=== PATIENT | male | born 1955 | race Caucasian/White ===

== ENCOUNTER 2017-10-23 05:14 | Emergency (ER) | payer BC ==
[2017-10-23 05:21] VITALS: RESP 20
[2017-10-23] MEDS ORDERED: SODIUM CHLORIDE 0.9% 500 ML IV STA (05:28)
[2017-10-23] MEDS ORDERED: SODIUM CHLORIDE 0.9% 1,000 ML IV STA ×2 (05:28→07:30)
[2017-10-23] MEDS ORDERED: ACETAMINOPHEN TAB 500 MG TAB PO STA (05:28)
[2017-10-23] MEDS ORDERED: IBUPROFEN 600 MG TAB PO STA (05:28)
[2017-10-23] MEDS ORDERED: RX INFO: IV CONTRAST WAS GIVEN 1 EACH MISC MISCELLANE PRN (05:32)
[2017-10-23 05:56] LABS: Basophils # (A) 0.1 k/uL (0-0.2); Basophils % (A) 1 %; Eosinophils % (A) 0 %; HCT 41.2 % (39.0-53.0); HGB 13.2 gm/dL (13.0-17.5); Lymphocytes # (A) 0.8 k/uL (1.0-4.8); Lymphocytes % (A) 10 %; MCH 29.4 pg (25.0-35.0); MCHC 32.1 g/dL (31.0-37.0); MCV 91.5 fL (80.0-100.0); Mean Platelet Volume 8.1; Monocytes # (A) 0.4 k/uL (0-1.0); Monocytes % (A) 5 %; Neutrophils # (A) 6.5 k/uL (1.3-7.7); Neutrophils % (A) 81 %; Platelet Count 202 k/uL (150-450); RDW 14.6 % (11.5-15.5); WBC 7.9 k/uL (3.8-10.6)
[2017-10-23 06:07] LABS: Partial Thromboplastin Time 27.6 sec (22.0-30.0); Prothrombin Time 10.1 sec (9.0-12.0)
[2017-10-23 06:08] LABS: ALT 42 U/L (21-72); AST 24 U/L (17-59); Albumin 3.8 g/dL (3.5-5.0); Alkaline Phosphatase 80 U/L (38-126); Anion Gap 14 mmol/L; Blood Urea Nitrogen 15 mg/dL (9-20); Calcium 8.2 mg/dL (8.4-10.2); Carbon Dioxide 23 mmol/L (22-30); Chloride 96 mmol/L (98-107); Glucose 115 mg/dL (74-99); Magnesium 1.6 mg/dL (1.6-2.3); Phosphorus 3.3 mg/dL (2.5-4.5); Potassium 3.6 mmol/L (3.5-5.1); Sodium 133 mmol/L (137-145); Total Bilirubin 0.6 mg/dL (0.2-1.3); Total Protein 6.6 g/dL (6.3-8.2)
--- NOTE | 2017-10-23 06:09 | ED ---
General Adult HPI - General Chief complaint: Headache Stated complaint: headache; chest pain; stomach pain Time Seen by Provider: 10/23/17 05:23 Source: patient, RN notes reviewed, old records reviewed Mode of arrival: ambulatory Limitations: no limitations - History of Present Illness Initial comments: This is a 62-year-old male to the ER for evaluation of multiple complaints. Patient complains of headache fever abdominal pain. Patient has no significant medical history. Patient states that he has been unable to urinate have bowel movement for. Patient states he hasn't eaten week. Drinking minimal multiple or minimal amount of urinary output. Patient states he hasn't felt well, with generalized abdominal pain and distention. Patient denies any travel history no sick contacts or family members with similar symptoms. Patient denies drugs or alcohol use - Related Data Home Medications Medication Instructions Recorded Confirmed Atorvastatin [Lipitor] 20 mg PO HS 10/23/17 10/23/17 Escitalopram [Lexapro] 20 mg PO DAILY 10/23/17 10/23/17 Verapamil HCl [Verelan Pm] 300 mg PO DAILY 10/23/17 10/23/17 buPROPion HCL [Wellbutrin XL] 300 mg PO DAILY 10/23/17 10/23/17 Allergies Allergy/AdvReac Type Severity Reaction Status Date / Time No Known Allergies Allergy Verified 10/23/17 07:37 Review of Systems ROS Statement: Those systems with pertinent positive or pertinent negative responses have been documented in the HPI. ROS Other: All systems not noted in ROS Statement are negative. Past Medical History Past Medical History: Hypertension History of Any Multi-Drug Resistant Organisms: None Reported Past Surgical History: No Surgical Hx Reported Past Psychological History: No Psychological Hx Reported Smoking Status: Former smoker Past Alcohol Use History: None Reported Past Drug Use History: None Reported General Exam Limitations: no limitations General appearance: alert, in no apparent distress Head exam: Present: atraumatic, normocephalic, normal inspection Eye exam: Present: normal appearance, PERRL, EOMI. Absent: scleral icterus, conjunctival injection, periorbital swelling ENT exam: Present: normal exam, mucous membranes moist Neck exam: Present: normal inspection. Absent: tenderness, meningismus, lymphadenopathy Respiratory exam: Present: normal lung sounds bilaterally. Absent: respiratory distress, wheezes, rales, rhonchi, stridor Cardiovascular Exam: Present: regular rate, normal rhythm, normal heart sounds. Absent: systolic murmur, diastolic murmur, rubs, gallop, clicks GI/Abdominal exam: Present: soft, normal bowel sounds. Absent: distended, tenderness, guarding, rebound, rigid Extremities exam: Present: normal inspection, full ROM, normal capillary refill. Absent: tenderness, pedal edema, joint swelling, calf tenderness Back exam: Present: normal inspection Neurological exam: Present: alert, oriented X3, CN II-XII intact Psychiatric exam: Present: normal affect, normal mood Skin exam: Present: warm, dry, intact, normal color. Absent: rash Course Vital Signs 10/23/17 05:18 Temperature 101.8 F H Pulse Rate 89 Respiratory 20 Rate Blood Pressure 152/69 O2 Sat by Pulse 93 L Oximetry - Reevaluation(s) Reevaluation #1: 10/23/17 07:44 Patient is feeling well able to urinate without difficulty, patient is tolerating oral fluids EKG Findings - EKG Comments: EKG Findings:: EKG shows normal sinus RHYTHM OF 74, NE 140, QRS 100, QTC 444 Medical Decision Making - Medical Decision Making 59 female to the ER for evaluation patient presents here today for evaluation regarding abdominal pain headache chest pain fever. Positive influenza leg test , patient will be given Tamiflu and okay for discharge home - Lab Data Result diagrams: 10/23/17 05:44 10/23/17 05:44 Lab Results 10/23/17 10/23/17 10/23/17 Range/Units 05:44 05:44 05:44 WBC 7.9 (3.8-10.6) k/uL RBC 4.50 (4.30-5.90) m/uL Hgb 13.2 (13.0-17.5) gm/dL Hct 41.2 (39.0-53.0) % MCV 91.5 (80.0-100.0) fL MCH 29.4 (25.0-35.0) pg MCHC 32.1 (31.0-37.0) g/dL RDW 14.6 (11.5-15.5) % Plt Count 202 (150-450) k/uL Neutrophils % 81 % Lymphocytes % 10 % Monocytes % 5 % Eosinophils % 0 % Basophils % 1 % Neutrophils # 6.5 (1.3-7.7) k/uL Lymphocytes # 0.8 L (1.0-4.8) k/uL Monocytes # 0.4 (0-1.0) k/uL Eosinophils # 0.0 (0-0.7) k/uL Basophils # 0.1 (0-0.2) k/uL PT (9.0-12.0) sec INR (<1.2) APTT (22.0-30.0) sec Sodium (137-145) mmol/L Potassium (3.5-5.1) mmol/L Chloride (98-107) mmol/L Carbon Dioxide (22-30) mmol/L Anion Gap mmol/L BUN (9-20) mg/dL Creatinine (0.66-1.25) mg/dL Est GFR (MDRD) Af Amer (>60 ml/min/1.73 sqM) Est GFR (MDRD) Non-Af (>60 ml/min/1.73 sqM) Glucose (74-99) mg/dL Plasma Lactic Acid Xavier (0.7-2.0) mmol/L Calcium (8.4-10.2) mg/dL Phosphorus (2.5-4.5) mg/dL Magnesium (1.6-2.3) mg/dL Total Bilirubin (0.2-1.3) mg/dL AST (17-59) U/L ALT (21-72) U/L Alkaline Phosphatase (38-126) U/L Total Creatine Kinase 161 (55-170) U/L CK-MB (CK-2) 0.4 (0.0-2.4) ng/mL CK-MB (CK-2) Rel Index 0.2 Troponin I <0.012 (0.000-0.034) ng/mL Total Protein (6.3-8.2) g/dL Albumin (3.5-5.0) g/dL Influenza Type A RNA Detected H (Not Detectd) Influenza Type B (PCR) Not Detected (Not Detectd) 10/23/17 10/23/17 10/23/17 Range/Units 05:44 05:44 05:44 WBC (3.8-10.6) k/uL RBC (4.30-5.90) m/uL Hgb (13.0-17.5) gm/dL Hct (39.0-53.0) % MCV (80.0-100.0) fL MCH (25.0-35.0) pg MCHC (31.0-37.0) g/dL RDW (11.5-15.5) % Plt Count (150-450) k/uL Neutrophils % % Lymphocytes % % Monocytes % % Eosinophils % % Basophils % % Neutrophils # (1.3-7.7) k/uL Lymphocytes # (1.0-4.8) k/uL Monocytes # (0-1.0) k/uL Eosinophils # (0-0.7) k/uL Basophils # (0-0.2) k/uL PT 10.1 (9.0-12.0) sec INR 1.0 (<1.2) APTT 27.6 (22.0-30.0) sec Sodium 133 L (137-145) mmol/L Potassium 3.6 (3.5-5.1) mmol/L Chloride 96 L (98-107) mmol/L Carbon Dioxide 23 (22-30) mmol/L Anion Gap 14 mmol/L BUN 15 (9-20) mg/dL Creatinine 1.10 (0.66-1.25) mg/dL Est GFR (MDRD) Af Amer >60 (>60 ml/min/1.73 sqM) Est GFR (MDRD) Non-Af >60 (>60 ml/min/1.73 sqM) Glucose 115 H (74-99) mg/dL Plasma Lactic Acid Xavier 0.9 (0.7-2.0) mmol/L Calcium 8.2 L (8.4-10.2) mg/dL Phosphorus 3.3 (2.5-4.5) mg/dL Magnesium 1.6 (1.6-2.3) mg/dL Total Bilirubin 0.6 (0.2-1.3) mg/dL AST 24 (17-59) U/L ALT 42 (21-72) U/L Alkaline Phosphatase 80 (38-126) U/L Total Creatine Kinase (55-170) U/L CK-MB (CK-2) (0.0-2.4) ng/mL CK-MB (CK-2) Rel Index Troponin I (0.000-0.034) ng/mL Total Protein 6.6 (6.3-8.2) g/dL Albumin 3.8 (3.5-5.0) g/dL Influenza Type A RNA (Not Detectd) Influenza Type B (PCR) (Not Detectd) - Radiology Data Radiology results: report reviewed (CT brain, CT abdomen and pelvis is negative) , image reviewed Disposition Clinical Impression: Influenza A, Fever Disposition: HOME SELF-CARE Condition: Good Instructions: Influenza (ED), Fever in Adults (ED) Referrals: Marilyn Ramirez MD [Primary Care Provider] - 1-2 days
[2017-10-23 06:24] LABS: Creatine Kinase 161 U/L (55-170)
[2017-10-23 06:37] LABS: Creatine Kinase MB 0.4 ng/mL (0.0-2.4); Troponin I <0.012 ng/mL (0.000-0.034)
[2017-10-23] MEDS ORDERED: OSELTAMIVIR 75 MG CAP PO STA (06:59)
--- NOTE | 2017-10-23 07:05 | XR ---
EXAMINATION TYPE: XR chest 2V DATE OF EXAM: 10/23/2017 HISTORY: Weakness. REFERENCE: NONE. FINDINGS: The lungs are clear. Pleural space are clear. Heart size is upper limits of normal. IMPRESSION: BORDERLINE CARDIOMEGALY.
[2017-10-23] MEDS ORDERED: DEXAMETHASONE SOD PHOSPHATE 10 MG/ML 1 ML VIAL IM STA (07:17)
--- NOTE | 2017-10-23 07:27 | CT ---
EXAM: CT Head Without Intravenous Contrast CLINICAL HISTORY: Reason: pain TECHNIQUE: Axial computed tomography images of the head/brain without intravenous contrast. CTDI is 60.30 mGy and DLP is 1090.40 mGy-cm. This CT exam was performed using one or more of the following dose reduction techniques: automated exposure control, adjustment of the mA and/or kV according to patient size, and/or use of iterative reconstruction technique. COMPARISON: No relevant prior studies available. FINDINGS: Brain: Unremarkable. No hemorrhage. No significant white matter disease. No edema. Ventricles: Unremarkable. No ventriculomegaly. Bones/joints: Unremarkable. No acute fracture. Soft tissues: Unremarkable. Sinuses: Minimal mucosal thickening involving the ethmoid air cells. Nasal septal deviation, presumed chronic. Mastoid air cells: Unremarkable as visualized. No mastoid effusion. IMPRESSION: No acute intracranial process identified.
--- NOTE | 2017-10-23 07:34 | CT ---
EXAM: CT Abdomen and Pelvis With Intravenous Contrast CLINICAL HISTORY: Reason: Pain TECHNIQUE: Axial computed tomography images of the abdomen and pelvis with intravenous contrast. CTDI is 71.70 mGy and DLP is 2743.40 mGy-cm. This CT exam was performed using one or more of the following dose reduction techniques: automated exposure control, adjustment of the mA and/or kV according to patient size, and/or use of iterative reconstruction technique. Coronal and sagittal reformatted images were created and reviewed. COMPARISON: No relevant prior studies available. FINDINGS: Lower thorax: 4 mm pulmonary nodule noted on the most superior image slice in the left lingular segment. Minimal subsegmental changes inferior lingular segments noted. ABDOMEN: Liver: Unremarkable. No mass. Gallbladder and bile ducts: Unremarkable. No calcified stones. No ductal dilation. Pancreas: Unremarkable. No mass. No ductal dilation. Spleen: Punctate calcifications identified within the spleen consistent with prior granulomatous disease. Adrenals: Unremarkable. No mass. Kidneys and ureters: The kidneys demonstrate normal renal contours without hydronephrosis or calcifications. Delayed imaging through the kidneys demonstrate contrast in the nondilated collecting system. Stomach and bowel: Unremarkable. No obstruction. No mucosal thickening. Appendix: No findings to suggest acute appendicitis. PELVIS: Bladder: Unremarkable. No mass. Reproductive: Unremarkable as visualized. ABDOMEN and PELVIS: Intraperitoneal space: Unremarkable. No free air. No significant fluid collection. Bones/joints: No acute fracture. No dislocation. Soft tissues: Unremarkable. Vasculature: Unremarkable. No abdominal aortic aneurysm. Lymph nodes: Unremarkable. No enlarged lymph nodes. IMPRESSION: 4 mm pulmonary nodule noted on the most superior image slice in the left lingular segment. For low-risk patients, no follow-up is necessary. For high-risk patients (smoking history or other known risk factors) an optional chest CT at 12 months could be performed. 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 No evidence for renal collecting sounds. The appendix is normal. No evidence for bowel obstruction.
[2017-10-23 08:03] VITALS: BP 139/73; TEMP 98.9
[2017-10-23] MEDS ORDERED: IPRATROPIUM-ALBUTEROL 3 ML NEB INHALATION STA (08:05)
[2017-10-23 08:16] LABS: Appearance,Urine Clear (Clear); Bacteria,Urine Rare /hpf; Bilirubin,Urine Negative (Negative); Blood,Urine Negative (Negative); Color,Urine Yellow; Glucose,Urine (UA) Negative (Negative); Ketones,Urine 1+ (Negative); Leukocyte Esterase,Urine Negative (Negative); Mucus,Urine Rare /hpf; Nitrite,Urine Negative (Negative); PH, Urine 6.5 (5.0-8.0); Protein,Urine 1+ (Negative); RBC,Urine 2 /hpf (0-5); Squamous Epithelial Cell,Urine <1 /hpf (0-4); Urobilinogen,Urine <2.0 mg/dL (<2.0); WBC,Urine 1 /hpf (0-5)
[2017-10-23 08:20] VITALS: PULSE 64
[2017-10-23 08:20] LABS: Specific Gravity,Urine >1.050 (1.001-1.035)
[2017-10-23] MEDS ORDERED: OSELTAMIVIR 75 MG CAP PO SCH (09:00)
== END 2017-10-23 08:36 | disposition home or self-care (01) ==
LOC: EC 05:14
DX: J10.1 Influenza due to other identified influenza virus with other respiratory manifestations (principal); I10 Essential (primary) hypertension; Z87.891 Personal history of nicotine dependence; Z79.899 Other long term (current) drug therapy
CPT/HCPCS: 99285; 96372; 96360; 96361; 36415; 94640; 93005; 80053; 82550; 82553; 83605; 83735; 84100; 84484; 85025; 85610; 85730; 81001; 87040; 87086; 87502; 71046; 70450; 74177; J1100; Q9967

== ENCOUNTER 2018-09-18 09:48 | Day surgery (SDC) | payer BC ==
[2018-09-14 12:04] VITALS: BMI 35.3
[~2018-09-18 09:48] MED LIST: LACTATED RINGERS 1,000 ML IV SCH; LIDOCAINE 1% 20 ML VIAL (10MG/ML) FOR IV START INTRADERMA PRN
[2018-09-18 10:26] VITALS: TEMP 97.7
--- NOTE | 2018-09-18 10:36 | P.GSHP ---
History of Present Illness H&P Date: 09/18/18 Chief Complaint: Diarrhea This is a 63-year-old male complaints of diarrhea. Patient presents today for colonoscopy. Past Medical History Past Medical History: Hypertension, Memory Impairment Additional Past Medical History / Comment(s): ZOE CARDENAS 1984 - History of Any Multi-Drug Resistant Organisms: None Reported Past Surgical History: Hernia Repair Past Anesthesia/Blood Transfusion Reactions: No Reported Reaction Smoking Status: Former smoker - Past Family History Mother Family Medical History: Cancer Medications and Allergies Home Medications Medication Instructions Recorded Confirmed Type Atorvastatin [Lipitor] 20 mg PO QAM 10/23/17 09/14/18 History Escitalopram [Lexapro] 20 mg PO QAM 10/23/17 09/14/18 History Verapamil HCl [Verelan Pm] 300 mg PO QAM 10/23/17 09/14/18 History buPROPion HCL [Wellbutrin XL] 300 mg PO QAM 10/23/17 09/14/18 History Aspirin [Adult Low Dose Aspirin EC] 81 mg PO DAILY 09/14/18 09/14/18 History Cholecalciferol [Vitamin D3] 1,000 unit PO DAILY 09/14/18 09/14/18 History Allergies Allergy/AdvReac Type Severity Reaction Status Date / Time No Known Allergies Allergy Verified 09/18/18 10:27 Surgical - Exam Vital Signs Temp Pulse Resp BP Pulse Ox 97.7 F 58 L 16 158/79 97 09/18/18 10:25 09/18/18 10:25 09/18/18 10:25 09/18/18 10:25 09/18/18 10:25 - General well developed, no distress - Eyes PERRL - ENT normal pinna - Neck no masses - Respiratory normal expansion - Cardiovascular Rhythm: regular - Abdomen Abdomen: soft, non tender Assessment and Plan Assessment: Diarrhea. We'll perform colonoscopy.
[2018-09-18] MEDS ORDERED: LIDOCAINE 1% INJ 10MG/ML (20 ML MDV) ONE (10:38)
[2018-09-18] MEDS ORDERED: PROPOFOL 10 MG/ML 20 ML VIAL IV ONE (10:38)
--- NOTE | 2018-09-18 10:55 | P.OP ---
Date of Procedure: 09/18/18 Preoperative Diagnosis: Diarrhea Postoperative Diagnosis: Rectal biopsy pathology pending Procedure(s) Performed: Colonoscopy Anesthesia: MAC Surgeon: Franco Encinas Pathology: other (Rectum) Condition: stable Disposition: PACU Description of Procedure: PROCEDURE: The patient was placed on the endoscopy table in the lateral position. Digital rectal examination was performed which revealed no abnormalities. The prostate was symmetrical without nodules. Flexible colonoscope was then placed in the patient's anus and passed throughout the entire colon. The ileocecal valve was visualized. The cecum, ascending, transverse, descending and sigmoid colon were normal. The rectum was normal as well. There were no masses, polyps or diverticula noted in the entire colon. Due to the patient's symptoms of diarrhea, a random rectal biopsies performed with the cold forcep.
[2018-09-18 11:47] VITALS: BP 159/89; PULSE 78; RESP 18
== END 2018-09-18 11:46 | disposition home or self-care (01) ==
LOC: ORWHC2ENDO 09:48
PROVIDERS: ATTEND Surgery
DX: R19.7 Diarrhea, unspecified (principal); K62.1 Rectal polyp; I10 Essential (primary) hypertension; Z79.82 Long term (current) use of aspirin; Z87.891 Personal history of nicotine dependence; Z79.899 Other long term (current) drug therapy
CPT/HCPCS: 88305; 45380; J2001; J2704

== ENCOUNTER → 2018-11-15 | Outpatient (CLI) | payer BC ==
--- NOTE | 2018-11-15 17:16 | CT ---
EXAMINATION TYPE: CT chest w con DATE OF EXAM: 11/15/2018 COMPARISON: Chest x-ray 10/23/2017 HISTORY: Solitary pulmonary nodule. CT DLP: 475.9 mGycm, Automated exposure control for dose reduction was used. CONTRAST: Performed injected with 100 mL of Isovue 300. TECHNIQUE: Axial images were obtained at 5 mm thick sections. Reconstructed images are reviewed on t computer in the coronal plane. FINDINGS: Portion of the thyroid visualized is normal. Mild emphysematous changes are present in the lung apices periphery. There is a small nodule along the major fissure on the left measuring 0.5 cm. Series 204, image 33. T his is calcification on the mediastinal windows. There is some thickening or nodularity within the periphery of the lingula measuring 1.7 cm along the pleural margin. Series 204 image 46. No enlarged mediastinal or hilar adenopathy is evident. The ascending aorta diameter at the level o f the main pulmonary artery is 3.9 cm. The main pulmonary artery diameter at the bifurcation is 2.[address] sections are obtained through the upper abdomen. Multiple calcified granuloma are within t he spleen. IMPRESSIONS: 1. Consider PET CT to evaluate the lingular finding along the pleural margin. Neoplasm is within the differential. This could be atelectasis. Follow-up CT chest in 3 months could be performed if the cli nical suspicion and risks factors are low.
== END | disposition home or self-care (01) ==
LOC: RADCTMAIN 13:51
PROVIDERS: ATTEND Family Medicine
DX: R91.1 Solitary pulmonary nodule (principal)
CPT/HCPCS: 71260; Q9967

== ENCOUNTER → 2019-01-06 | Outpatient (CLI) | payer BC ==
--- NOTE | 2019-01-06 19:01 | PE ---
EXAMINATION TYPE: PET CT fusion skull to thigh DATE OF EXAM: 01/06/2019 COMPARISON: CT abdomen and pelvis October 23, 2017. CT chest November 15, 2018 HISTORY: Lung cancer initial staging studies, abnormal recent CT. TECHNIQUE: Following the intravenous administration of 10.843 mCi of F-18 FDG, whole body images are performed from the skull base to the midthigh. Images are reviewed on the computer in the coronal, axial, and sagittal planes. Reconstructed rotating images are created on independent workstation and reviewed on the computer. A noncontrast CT is performed in conjunction with the PET scan. SCAN: Initial Scan FINDINGS: SKULL BASE AND NECK: Mild fairly symmetric uptake present at tongue base slightly larger on the left , max SUV is 5.18, there is artifact from cavitary feelings on CT, no obvious mass is present. Would consider ENT follow-up to exclude mucosal lesion at this level. CHEST, MEDIASTINUM, AND HILAR REGION: There is old fracture deformity to the anterolateral left-sided ribs. There is redemonstration of calcified 5 mm nodule or granuloma left midlung axial image 84. Co rresponding to area of concern on recent CT there is irregular slightly nodular thickening in the ant erior left lung base adjacent to rib axial image 103 measuring roughly 2.3 x 0.7 cm that is ametaboli c. Remainder of the thorax shows no areas of suspicious nodularity or hypermetabolic uptake. ABDOMEN AND PELVIS: Normal excretion is seen. There is somewhat prominent hypermetabolic, max SUV is 6.71 uptake in the right colon without suspicious wall thickening, correlate clinically to exclude co litis. No suspicious hypermetabolic uptake is present. OSSEOUS STRUCTURES: No suspicious hypermetabolic uptake is seen. OTHER CT: Background mild underlying emphysematous change is present. Cardiomegaly is redemonstrated. There are calcified left suprahilar lymph nodes. There are calcifications throughout the spleen. Fin dings are consistent with old granulomatous disease with calcified left lung nodule also noted. Mild multilevel spurring. Mild facet arthropathy lower lumbar levels. Mild vascular calcification. IMPRESSION: 1. No suspicious hypermetabolic uptake at area of peripheral nodularity anterolateral left lung base. Would consider CT follow-up in one year time to ensure benign process. 2. Possible right-sided mild colitis, correlate clinically. 3. Slightly more prominent hypermetabolic uptake at level of the tongue base, would consider ENT foll ow-up for direct visualization to ensure there is no mucosal mass or neoplasm at this level.
== END | disposition home or self-care (01) ==
LOC: RADPETMAIN 13:36
PROVIDERS: ATTEND Family Medicine
DX: R93.89 Abnormal findings on diagnostic imaging of other specified body structures (principal); R91.1 Solitary pulmonary nodule
CPT/HCPCS: 78815; A9552

== ENCOUNTER → 2024-05-02 | Outpatient (CLI) | payer MEDICARE ==
[~2024-05-02] MED LIST changes: -LACTATED RINGERS 1,000 ML IV SCH; -LIDOCAINE 1% 20 ML VIAL (10MG/ML) FOR IV START INTRADERMA PRN; +REGADENOSON 0.4 MG/5 ML SYRINGE IV PRN
--- NOTE | 2024-05-02 10:52 | CA ---
Lexiscan Nuclear Stress Test Report Name: Matty Landis Exam Date: 05/02/2024 09:19 Exam Location: [place] Stress Ht (in): 70 Wt (lb): 235 BSA: 2.24 Ordering Phys: Loreto Orozco DO Referring Phys: Elle Correia [facility] Technologist: Ashkan Barajas Age: 69 Gender: M : 1955 Procedure CPT: Indications: R07.9 CHEST PAIN, UNSPECIFIED ICD-10 Codes: Patient History: Medications: LISINOPRIL, ATORVASTATIN, GABAPENTIN, ASPIRIN, VALTREX, Meds past 24 hrs: Pretest Chest Pain: STRESS TEST Lexiscan Protocol Exercise Duration (min:sec): 02:[address] Depressions (mm): Angina Score: Ibarra Score: Resting HR (bpm): 61 Peak HR (bpm): 92 Resting BP (mmHg): 182 / 102 Peak BP (mmHg): 178 / 85 MPHR: 150 Target HR: 128 % MPHR: 61 METS: 1.0 Total Dose: Peak Dose: Atropine: Double Product: 17705 BP Response: Stress Termination: PROTOCOL COMPLETE Stress Symptoms: No chest pain or symptoms Stress Summary: ECG ANALYSIS Resting ECG: Stress ECG: CONCLUSIONS At baseline EKG showed normal sinus rhythm, normal axis, J-point elevation diffusely with no significant ST or T wave abnormalities. Patient recieved IV infusion of Lexiscan 0.4mg and at peak infusion EKG showed no significant change from baseline. Conclusions: 1. Normal EKG response to Lexiscan infusion with baseline J- point elevation of EKG. 2. Nuclear imaging to be reported separately. Dr. Melquiades Fernández DO (Electronically Signed) Final Date: 02 May 2024 10:51
--- NOTE | 2024-05-02 13:32 | NM ---
EXAMINATION TYPE: NM stress lexiscan cardiolite DATE OF EXAM: 05/02/2024 COMPARISON: NONE CLINICAL INDICATION: Male, 69 years old with history of R07.9 CHEST PAIN, UNSPECIFIED; TECHNIQUE: After the intravenous administration of 10.3 mCi Tc 99m Sestamibi - Cardiolite resting SP ECT images acquired 45 minutes post injection. The patient received 0.4mg Lexiscan, 25.0 mCi Tc 99m Sestamibi - Stress images obtained [address] injection FINDINGS: Review of stress and rest SPECT images demonstrates no distinct perfusion abnormality. Gated analysi s shows normal wall motion with an estimated left ventricular ejection fraction of 59 %. IMPRESSION: No scintigraphic evidence for reversible ischemia.
== END | disposition home or self-care (01) ==
LOC: RADNMMAIN 07:22
PROVIDERS: ATTEND Family Medicine
DX: R07.9 Chest pain, unspecified (principal); I10 Essential (primary) hypertension
CPT/HCPCS: 93017; 78452; A9500; J2785